=== PATIENT | male | born 1960 | race Caucasian/White ===

== ENCOUNTER 2024-03-27 07:59 | Day surgery (SDC) | payer OTHER ==
[2024-03-23 14:33] VITALS: BMI 24.4
[2024-03-27] MEDS ORDERED: MIDAZOLAM HCL 2 MG/2 ML SINGLE DOSE VIAL ONE (09:01)
[2024-03-27 10:17] VITALS: TEMP 98
[2024-03-27 10:20] VITALS: BP 101/72; PULSE 77; RESP 18
== END 2024-03-27 10:55 | disposition home or self-care (01) ==
LOC: FASU-ENDO 07:59
PROVIDERS: ATTEND Internal Medicine Gastroenterology
PROC: 0DJD8ZZ Inspection of Lower Intestinal Tract, Via Natural or Artificial Opening Endoscopic (ICD-10-PCS; principal; 2024-03-27 09:20)
DX: Z12.11 Encounter for screening for malignant neoplasm of colon (principal); Z86.0100 Personal history of colon polyps, unspecified
CPT/HCPCS: 82962